=== PATIENT | male | born 1980 | race American Indian/Alaskan Native ===

== ENCOUNTER 2018-03-12 01:40 | Emergency (ER) | payer OTHER ==
[2018-03-12 01:52] VITALS: BP 133/76
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
[2018-03-12] MEDS ORDERED: TORADOL IM ONE (02:30)
--- NOTE | 2018-03-12 03:22 | XRay Report ---
FINAL REPORT PROCEDURE: XR PELVIS 1-2V TECHNIQUE: RIGHT hip radiographs, 2 views each, including AP view of the pelvis. HISTORY: pelvis injury with pain COMPARISON: No prior studies are available for comparison. FINDINGS: Fracture (s) and/or Dislocation(s): None . Joint space(s): Normal. Soft tissues: Normal. Bone mineralization: Normal. Foreign bodies: None. IMPRESSION: Normal Examination.
--- NOTE | 2018-03-12 03:23 | XRay Report ---
FINAL REPORT PROCEDURE: XR SPINE LUMBOSACRAL 2-3V TECHNIQUE: Lumbar spine radiographs, including AP, lateral, and lumbosacral spot views. CPT 85915 HISTORY: back injury with lower back pain COMPARISON: No prior studies are available for comparison. FINDINGS: Alignment: Normal. Vertebral body heights/Disk spaces: Normal. Fracture(s): None. Facets: Normal. Bone mineralization: Normal. IMPRESSION: Normal Examination.
== END 2018-03-12 03:30 | disposition home or self-care (01) ==
LOC: ED 01:40
DX: M54.5 Low back pain (principal); R10.2 Pelvic and perineal pain; M25.551 Pain in right hip; M25.552 Pain in left hip; M79.662 Pain in left lower leg; M79.661 Pain in right lower leg
CPT/HCPCS: 72100; 72170; 96372; 99283; J1885